=== PATIENT | female | born 1975 | race Caucasian/White ===

== ENCOUNTER → 2016-09-12 | Outpatient (CLI) | payer BC ==
[~2016-09-12] MED LIST: ALPR0.5T PO; ALPR1TAB PO; AMOX-358 PO; CITA20TA12 PO; DOCU-143 PO; HYDR-3062 PO; HYDR-3812 PO; SULF1TAB35 PO; ZOLP10TA PO
--- OUTSIDE RECORDS SUMMARY | 2016-09-12 08:10 | XMS REPORT | Continuity of Care Document ---
Author Author [facility] Organization [facility] Address Unknown Phone Unavailable Care Team Providers Care Diamond Picker Name Role Phone ANNABELLA DALTON MD PCP Insurance Providers Payer Name Policy Number Subscriber Name Relationship [id number] Clarisa Velez 18 Self / Same As Patient Advance Directives Directive Response Recorded Date/Time Advance Directives No 08/02/16 11:39am Health Care Power of Science Liaison No 08/02/16 11:39am Organ Donor Yes 08/02/16 11:39am Resuscitation Status Full Code 08/02/16 11:39am Problems No problem information available. Medications Current Home Medications Medication Dose Units Route Directions Days/Qty Instructions Start Date Sulfamethoxazole/Trimethoprim Unknown Strength 1 Each Oral Daily Docusate Sodium 100 Mg 100 Mg Oral Twice A Day 60 08/02/16 Hydrocodone/Acetaminophen 1 Each 1 Each Oral Q4-6 Hrs as needed for Pain 30 08/02/16 Social History Social History Problem Response Recorded Date/Time Alcohol Use Occasionally Uses 08/02/2016 11:39am Recreational Drug Use No 08/02/2016 11:39am Recent Foreign Travel No 08/02/2016 11:34am Recent Infectious Disease Exposure No 08/02/2016 11:34am Sexually Transmitted Disease No 08/02/2016 11:39am HIV/AIDS No 08/02/2016 11:39am Smoking Status Current Everyday Smoker 08/02/2016 11:39am Type Used Cigarettes 08/02/2016 3:59pm Recent Hopitalizations No 08/02/2016 11:39am Sexually Transmitted Disease No 08/02/2016 11:39am Query Response Start Date Stop Date Smoking Status Current Everyday Smoker Hospital Discharge Instructions Patient Instructions Physician Instructions New, Converted or Re-Newed RX: RX on Chart Plan of Care/Instructions/FU: Change packing with Iodoform daily. Follow up with Dr. Chavez in clinic on friday. Continue with Antibiotics No lifting over 10 lbs Activity as Tolerated: No Other Inst to Patient Follow up Appt: Make appointment for friday Instructions: No lifting greater than 10 pounds. No strenuous activity. May shower in 24 hours, no tub bath or soaking. Use incentive spirometer at home as directed. No Smoking Skin/Wound Care: Change packing every day. Symptoms to Report: Appetite Changes, Extremity Discoloration, Numbness/Tingling, Swelling Increased, Bleeding Excessive, Eyesight Changes, Pain Increased, Urine Color Change, Constipation(Persistent), Fever over 101 degree F, Pain/Pressure in chest, Urinating Difficulty, Cough Up/Vomit Blood, Heart Beat Irreg/Pounding, Pain/Pressure in jaw, Vaginal Bleeding Increase, Cramps in feet or legs, Lightheadedness, Pain/Pressure in shoulder, Diarrhea(Persistent), Memory Changes Suddenly, Questions/Concerns, Weight gain consecutive days, Dizziness/Fainting, Nausea/Vomiting, Shortness of Breath, Weight gain over 2 pounds If questions or concerns contact your physician Or seek help at emergency department. Care Plan Patient Instructions:: Change packing with Iodoform daily.Follow up with Dr. Chavez in clinic on friday. Continue with AntibioticsNo lifting over 10 lbs Plan of Care Discharge Date 08/02/16 2:55pm Instructions/Education Provided ANESTHESIA INSTRUCTIONS POSTOP Wound Incision and Drainage (DC) Prescriptions See Medication Section Functional Status No functional status results. Allergies, Adverse Reactions, Alerts No known allergies. Immunizations No immunization records. Vital Signs Acute Vital Signs Vital Response Date/Time Temperature (Fahrenheit) 97.4 degrees F (97.6 - 99.5) 08/02/2016 2:55pm Temperature (Calculated Celsius) 36.01638 degrees C (36.4 - 37.5) 08/02/2016 2:50pm Temperature Source Temporal 08/02/2016 2:55pm Pulse Rate (adult) 86 bpm (60 - 90) 08/02/2016 2:55pm Respiratory Rate 18 bpm (12 - 24) 08/02/2016 2:55pm O2 Sat by Pulse Oximetry 98 % (88 - 100) 08/02/2016 2:55pm Blood Pressure 118/68 mm Hg 08/02/2016 2:55pm Blood Pressure Mean 87 mm Hg 08/02/2016 11:42am Pain Numeric Pain Scale 0-No Pain 08/02/2016 2:55pm Pain Intensity 0 08/02/2016 2:50pm Height (Feet) 5 feet 08/02/2016 11:38am Height (Inches) 5.00 inches 08/02/2016 11:38am Height (Calculated Centimeters) 165.945601 cm 08/02/2016 11:38am Weight (Pounds) 216 pounds 08/02/2016 11:38am Weight (Ounces) 0.0 oz 08/02/2016 11:38am Weight (Calculated Grams) 30953.95 gm 08/02/2016 11:38am Weight (Calculated Kilograms) 97.323917 kilograms 08/02/2016 11:38am Calculated BMI 35.9 08/02/2016 11:38am Results Microbiology Results Procedure Source Result Collection Date/Time Result Date/Time Surgical Culture Abscess, Breast, Right No growth 08/01/2016 11:20am 2015 10:25am Procedures Procedure Status Date Provider(s) Incision and drainage Completed 08/02/16 SAMANTHA CHAVEZ DO Encounters Encounter Location Arrival/Admit Date Discharge/Depart Date Attending Provider Departed [facility] Day [facility] 08/02/16 9:59am 2:55pm SAMANTHA CHAVEZ DO Registered Clinic [facility] 08/01/16 1:14pm SAMANTHA CHAVEZ DO Registered Clinic [facility] 08/01/16 8:28am SARA FRANKS
--- NOTE | 2016-09-12 20:37 | Diagnostic Imaging Report ---
INDICATION: Right breast abscess. EXAMINATION: Limited ultrasound of the right breast. FINDINGS: The previous right breast ultrasound exam performed on 08/01/16, noted a 4.3 x 2.7 x 3.4 cm hypoechoic mass with internal echoes in the 4 o'clock position of the retroareolar region of the right breast. This area was subsequently aspirated on 08/01/16 and proved to be infected fluid. It is my understanding that the patient then underwent surgical drainage of the infected fluid collection. On this exam, there is still some fluid present in the 4 o'clock position of the retroareolar region of the breast. The fluid collection measures 2.8 x 1.1 x 1.2 cm. Adjacent to this fluid collection, along its lateral aspect, there is a small, 0.8 x 0.8 x 1.0 cm well circumscribed hypoechoic area with internal echoes and through transmission. The ultrasound images do show that this appears to communicate with the fluid collection. I suspect that this is also a small collection of fluid. IMPRESSION: 1. The appearance of the retroareolar region of the left breast has improved since the prior exam as the infected fluid collection, noted previously, has decreased in size. However, there is still some residual fluid present. 2. These results were discussed with Dr. Irving Slaughter. ACR BI-RADS Category 2: Benign findings. Result letter will be mailed to the patient. Note: At least 10% of breast cancer is not imaged by mammography. Dictated by: Dictated on workstation # [id number]
== END ==
LOC: RAD 08:08
PROVIDERS: ATTEND Surgery
DX: N61.1 Abscess of the breast and nipple (principal)

== ENCOUNTER → 2016-09-12 | Outpatient (CLI) | payer BC ==
--- OUTSIDE RECORDS SUMMARY | 2016-09-12 11:32 | XMS REPORT | Continuity of Care Document ---
Author Author [facility] Organization [facility] Address Unknown Phone Unavailable Care Team Providers Care Bale Opener Name Role Phone ANNABELLA DALTON MD PCP Insurance Providers Payer Name Policy Number Subscriber Name Relationship [id number] Clarisa Velez 18 Self / Same As Patient Advance Directives Directive Response Recorded Date/Time Advance Directives No 08/02/16 11:39am Health Care Power of Managing Member No 08/02/16 11:39am Organ Donor Yes 08/02/16 [...] - 99.5) 08/02/2016 2:55pm Temperature (Calculated Celsius) 36.73227 degrees C (36.4 - 37.5) 08/02/2016 2:50pm [...] 5.00 inches 08/02/2016 11:38am Height (Calculated Centimeters) 165.569953 cm 08/02/2016 11:38am Weight (Pounds) 216 pounds 08/02/2016 11:38am Weight (Ounces) 0.0 oz 08/02/2016 11:38am Weight (Calculated Grams) 96074.95 gm 08/02/2016 11:38am Weight (Calculated Kilograms) 97.738547 kilograms 08/02/2016 11:38am Calculated BMI 35.9 08/02/2016 11:38am Results Microbiology Results Procedure Source Result Collection Date/Time Result Date/Time Surgical Culture Abscess, Breast, Right No growth 08/01/2016 11:20am 2015 10:25am Procedures Procedure Status Date Provider(s) Incision and drainage Completed 08/02/16 SAMANTHA CHAVEZ DO Encounters Encounter Location Arrival/Admit Date Discharge/Depart Date Attending Provider Departed Surgical Day Care [facility] 08/02/16 9:59am 2:55pm SAMANTHA CHAVEZ DO Registered Clinic [facility] 08/01/16 1:14pm SAMANTHA CHAVEZ DO Registered Clinic [facility] 08/01/16 8:28am SARA FRANKS
== END ==
LOC: PREOP 11:24
PROVIDERS: ATTEND Surgery
DX: Z01.818 Encounter for other preprocedural examination (principal); N61.1 Abscess of the breast and nipple

== ENCOUNTER 2016-09-13 07:31 | Day surgery (SDC) | payer BC ==
[~2016-09-13] VITALS: Ht 165.1 cm; Wt 99.8 kg
[~2016-09-13 07:31] MED LIST changes: -ALPR0.5T PO; -ALPR1TAB PO; -AMOX-358 PO; -CITA20TA12 PO; -HYDR-3812 PO; -ZOLP10TA PO
--- OUTSIDE RECORDS SUMMARY | 2016-09-13 07:34 | XMS REPORT | Continuity of Care Document ---
Author Author [facility] Organization [facility] Address Unknown Phone Unavailable Care Team Providers Care Field Representative Name Role Phone ANNBAELLA DALTON MD PCP Insurance Providers Payer Name Policy Number Subscriber Name Relationship [id number] Clarisa Velez 18 Self / Same As Patient Advance Directives Directive Response Recorded Date/Time Advance Directives No 08/02/16 11:39am Health Care Power of Asian Studies Professor No 08/02/16 11:39am Organ Donor Yes 08/02/16 [...] - 99.5) 08/02/2016 2:55pm Temperature (Calculated Celsius) 36.89451 degrees C (36.4 - 37.5) 08/02/2016 2:50pm [...] 5.00 inches 08/02/2016 11:38am Height (Calculated Centimeters) 165.447335 cm 08/02/2016 11:38am Weight (Pounds) 216 pounds 08/02/2016 11:38am Weight (Ounces) 0.0 oz 08/02/2016 11:38am Weight (Calculated Grams) 11887.95 gm 08/02/2016 11:38am Weight (Calculated Kilograms) 97.085370 kilograms 08/02/2016 11:38am Calculated BMI 35.9 08/02/2016 11:38am Results Microbiology Results Procedure Source Result Collection Date/Time Result Date/Time Surgical Culture Abscess, Breast, Right No growth 08/01/2016 11:20am 2015 10:25am Procedures Procedure Status Date Provider(s) Incision and drainage Completed 08/02/16 SAMANTHA CHAVEZ DO Encounters Encounter Location Arrival/Admit Date Discharge/Depart Date Attending Provider Departed Surgical Day Care [facility] 08/02/16 9:59am 2:55pm SAMANTHA CHAVEZ DO Registered Clinic [facility] 08/01/16 1:14pm SAMANTHA CHAVEZ DO Registered Clinic [facility] 08/01/16 8:28am SARA FRANKS
--- OUTSIDE RECORDS SUMMARY | 2016-09-13 07:35 | XMS REPORT | Continuity of Care Document ---
Author Author [facility] Organization [facility] Address Unknown Phone Unavailable Care Team Providers Care Publishing Systems Analyst Name Role Phone ANNABELLA DALTON MD PCP Insurance Providers Payer Name Policy Number Subscriber Name Relationship [id number] Clarisa Velez 18 Self / Same As Patient Advance Directives Directive Response Recorded Date/Time Advance Directives No 08/02/16 11:39am Health Care Power of Registered Diet Technician No 08/02/16 11:39am Organ Donor Yes 08/02/16 [...] - 99.5) 08/02/2016 2:55pm Temperature (Calculated Celsius) 36.03987 degrees C (36.4 - 37.5) 08/02/2016 2:50pm [...] 5.00 inches 08/02/2016 11:38am Height (Calculated Centimeters) 165.894691 cm 08/02/2016 11:38am Weight (Pounds) 216 pounds 08/02/2016 11:38am Weight (Ounces) 0.0 oz 08/02/2016 11:38am Weight (Calculated Grams) 46317.95 gm 08/02/2016 11:38am Weight (Calculated Kilograms) 97.687669 kilograms 08/02/2016 11:38am Calculated BMI 35.9 08/02/2016 11:38am Results Microbiology Results Procedure Source Result Collection Date/Time Result Date/Time Surgical Culture Abscess, Breast, Right No growth 08/01/2016 11:20am 2015 10:25am Procedures Procedure Status Date Provider(s) Incision and drainage Completed 08/02/16 SAMANTHA CHAVEZ DO Encounters Encounter Location Arrival/Admit Date Discharge/Depart Date Attending Provider Departed Surgical Day [facility] 08/02/16 9:59am 2:55pm SAMANTHA CHAVEZ DO Registered Clinic [facility] 08/01/16 1:14pm SAMANTHA CHAVEZ DO Registered Clinic [facility] 08/01/16 8:28am SARA FRANKS
[2016-09-13] MEDS: LACTATED RINGERS 1,000 ML IV SCH ×2 (07:45→09:57)
[2016-09-13] MEDS ORDERED: NORMAL SALINE (BAXTER MINI) 100 ML IV ONE (07:46)
[2016-09-13] MEDS ORDERED: ceFAZolin 1,000 MG (ANCEF) VIAL ONE (07:46)
[2016-09-13] MEDS ORDERED: LIDOCAINE 1% INJ 20 ML (XYLOCAINE) VIAL ONE (07:55)
[2016-09-13] MEDS ORDERED: BUPIVACAINE 0.5% 30 ML (SENSORCAINE) VIAL ONE (07:55)
[2016-09-13] MEDS ORDERED: MIDAZOLAM 2 MG/2 ML (VERSED) VIAL ONE (07:57)
[2016-09-13] MEDS ORDERED: fentaNYL INJECTION 100 MCG/2 ML AMP ONE (07:57)
[2016-09-13] MEDS ORDERED: LACTATED RINGERS 1,000 ML IV ONE ×2 (07:57→09:49)
[2016-09-13] MEDS ORDERED: ONDANSETRON 4 MG/2 ML (SDV) Z0FRAN ONE (07:57)
[2016-09-13] MEDS ORDERED: LIDOCAINE PF 2% 10 ML (XYLOCAINE) AMP ONE (07:57)
[2016-09-13] MEDS ORDERED: proPOfol 200 MG/20 ML (DIPRIVAN) VIAL IV ONE (07:57)
[2016-09-13] MEDS ORDERED: CITA20TA12 PO (08:04)
[2016-09-13] MEDS ORDERED: ZOLP10TA PO (08:04)
[2016-09-13] MEDS ORDERED: ALPR0.5T PO (08:04)
[2016-09-13 08:11] VITALS: BP 124/86
[2016-09-13] MEDS ORDERED: ceFAZolin 1 GM/NS 50 ML IVPB IV ONE ×4 (08:15)
[2016-09-13] MEDS ORDERED: morphine INJ 10 MG/ML 1ML (SYR OR VIAL) IVP PRN (08:30)
[2016-09-13] MEDS ORDERED: MEPERIDINE (DEMEROL) INJ 50 MG/ML IVP PRN ×2 (08:30→09:30)
[2016-09-13] MEDS ORDERED: ONDANSETRON 4 MG/2 ML (SDV) Z0FRAN IVP PRN ×2 (08:30→09:30)
--- NOTE | 2016-09-13 08:40 | Progress Note-Pre Operative ---
Pre-Operative Progress Note H&P Reviewed The H&P was reviewed, patient examined and no changes noted. Date H&P Reviewed: Sep 13, 2016 Time H&P Reviewed: 08:40 Pre-Operative Diagnosis: right breast abscess SAMANTHA CHAVEZ DO Sep 13, 2016 8:40 am
[2016-09-13] MEDS ORDERED: SEVOFLURANE (ULTANE) 15 ML INHAL SOLN ONE ×2 (08:42→09:06)
[2016-09-13] MEDS ORDERED: HYDROmorphone (DILAUDID) 2 MG/ML VIAL IVP PRN (09:30)
[2016-09-13] MEDS ORDERED: morphine INJ 10 MG/ML 1ML (SYR OR VIAL) ONE (09:39)
[2016-09-13] MEDS: morphine INJ 10 MG/ML 1ML (SYR OR VIAL) IVP PRN ×2 (09:48→09:53)
[2016-09-13] MEDS ORDERED: HYDR-3062 PO (09:48)
--- NOTE | 2016-09-13 09:50 | Discharge Inst-Simple/Standard ---
Discharge Inst-Standard Discharge Medications New, Converted or Re-Newed RX: RX on Chart Patient Instructions/Follow Up Plan of Care/Instructions/FU: Follow up with Dr. Slaughter on Friday. Irrigate wound and pack daily. Take medications as prescribed. Activity as Tolerated: No Discharge Diet: No Restrictions Other Inst to Patient Follow up Appt: Make appointment for friday. Instructions: No lifting greater than 10 pounds. No strenuous activity. May shower in 24 hours, no tub bath or soaking. Use incentive spirometer at home as directed. No Smoking Skin/Wound Care: Irrigate wound and pack daily Symptoms to Report: Appetite Changes, Extremity Discoloration, Numbness/Tingling, Swelling Increased , Bleeding Excessive, Eyesight Changes, Pain Increased, Urine Color Change, Constipation(Persistent), Fever over 101 degree F, Pain/Pressure in chest, Urinating Difficulty, Cough Up/Vomit Blood, Heart Beat Irreg/Pounding, Pain/ Pressure in jaw, Vaginal Bleeding Increase, Cramps in feet or legs, Lightheadedness, Pain/Pressure in shoulder, Diarrhea(Persistent), Memory Changes Suddenly, Questions/Concerns, Weight gain consecutive days, Dizziness/ Fainting, Nausea/Vomiting, Shortness of Breath, Weight gain over 2 pounds If questions or concerns contact your physician Or seek help at emergency department. JOSE ASCENCIO APRN Sep 13, 2016 09:50
[2016-09-13] MEDS ORDERED: AMOX-358 PO (09:54)
[2016-09-13 10:20] VITALS: BP 109/80
--- NOTE | 2016-09-13 10:24 | Progress Note-Post Operative ---
Post-Operative Progess Note Pre-Operative Diagnosis right breast abscess Post-Operative Diagnosis same Post-Op Procedure Note Date of Procedure: Sep 13, 2016 Name of Procedure: i and d and debridement of right breast [id number] Procedure Note/Findings see note Anesthesia Type general Estimated blood loss (mL): minimal Specimen(s) collected breast tissue right SAMANTHA CHAVEZ DO Sep 13, 2016 10:24 am
[2016-09-13 10:50] VITALS: BP 118/70
[2016-09-13 11:20] VITALS: BP 109/80
--- NOTE | 2016-09-15 12:11 | OPERATIVE REPORT ---
PROCEDURE PHYSICIAN: SAMANTHA CHAVEZ DATE OF PROCEDURE: 09/13/2016 PREOPERATIVE DIAGNOSIS: Right breast abscess. POSTOPERATIVE DIAGNOSIS: Right breast abscess. PROCEDURE: Incision and drainage and debridement of right breast 7 x 4 x 4 cm. ANESTHESIA: General. ESTIMATED BLOOD LOSS: Minimal. COMPLICATIONS: None. INDICATIONS: The patient is a 41-year-old female who had previous had incision and drainage of right breast. The wound healed but she had reaccumulation of fluid demonstrated by ultrasound. The patient is still has significant induration on exam here. The patient understands the risks and benefits of procedure and wished to proceed with procedure. Consent was signed on chart. PROCEDURE: The patient was taken to the operative suite. She was prepped in sterile fashion. A surgical pause was performed. Using the previous incision a cautery cut was used to open the existing incision. This was opened up more laterally as well. Purulent material erupted, culture was obtained. The area was then continued to be opened up further. Large pocket still present with significant inflamed hard tissue present. Cautery was used to dissect around the hard firm tissue to soft healthy feeling and appearing tissue. The total size was 7 x 4 x 4 cm of the pocket of the breast. Copious amounts of irrigation were used to irrigate the breast. Hemostasis had been achieved. The wound was then packed with one-inch iodoform. The breast was then washed and dried. Sterile bandage was applied. The patient tolerated the procedure well without complication. She was taken to recovery room in stable condition. The patient is to continue daily irrigation and packing changes. The patient will follow-up in my office on Friday. If she has any problems prior to that, she should be reevaluated at that time. Job ID: [id number] Dictated Date: 09/13/2016 10:27:53 Produce Assistant Date: 09/15/2016 12:03:33 / huber
== END 2016-09-13 11:20 | disposition home or self-care (01) ==
LOC: SDC 07:31
PROVIDERS: ATTEND Surgery
DX: N61.1 Abscess of the breast and nipple (principal)
CPT/HCPCS: 84703; 87070; 87075; 87081; 87205; 88305; 94664

== ENCOUNTER 2016-09-14 09:18 | Outpatient (RCR) | payer BC ==
[~2016-09-14] VITALS: Ht 165.1 cm; Wt 99.8 kg
[~2016-09-14 09:18] MED LIST changes: +ALPR0.5T PO; +AMOX-358 PO; +CITA20TA12 PO; +ZOLP10TA PO
--- OUTSIDE RECORDS SUMMARY | 2016-09-14 09:22 | XMS REPORT | Continuity of Care Document ---
Author Author [facility] Organization [facility] Address Unknown Phone Unavailable Care Team Providers Care Secretary Receptionist Name Role Phone ANNABELLA DALTON MD PCP Insurance Providers Payer Name Policy Number Subscriber Name Relationship [id number] Clarisa Velez 18 Self / Same As Patient Advance Directives Directive Response Recorded Date/Time Advance Directives No 08/02/16 11:39am Health Care Power of Branch Customer Service Representative No 08/02/16 11:39am Organ Donor Yes 08/02/16 [...] - 99.5) 08/02/2016 2:55pm Temperature (Calculated Celsius) 36.82179 degrees C (36.4 - 37.5) 08/02/2016 2:50pm [...] 5.00 inches 08/02/2016 11:38am Height (Calculated Centimeters) 165.367671 cm 08/02/2016 11:38am Weight (Pounds) 216 pounds 08/02/2016 11:38am Weight (Ounces) 0.0 oz 08/02/2016 11:38am Weight (Calculated Grams) 80091.95 gm 08/02/2016 11:38am Weight (Calculated Kilograms) 97.275634 kilograms 08/02/2016 11:38am Calculated BMI 35.9 08/02/2016 11:38am Results Microbiology Results Procedure Source Result Collection Date/Time Result Date/Time Surgical Culture Abscess, Breast, Right No growth 08/01/2016 11:20am 2015 10:25am Procedures Procedure Status Date Provider(s) Incision and drainage Completed 08/02/16 SAMANTHA CHAVEZ DO Encounters Encounter Location Arrival/Admit Date Discharge/Depart Date Attending Provider Departed Surgical Day Care [facility] 08/02/16 9:59am 2:55pm SAMANTHA CHAVEZ DO Registered Clinic [facility] 08/01/16 1:14pm SAMANTHA CHAVEZ DO Registered Clinic [facility] 08/01/16 8:28am SARA FRANKS
[2016-09-14 09:47] VITALS: BP 124/79
== END 2016-12-13 | disposition home or self-care (01) ==
LOC: SDC 09:18
PROVIDERS: ATTEND Surgery
DX: Z48.01 Encounter for change or removal of surgical wound dressing (principal)

== ENCOUNTER 2016-12-18 13:53 | Outpatient (CLI) | payer BC ==
[~2016-12-18] VITALS: Ht 166.4 cm; Wt 101.2 kg
[2016-12-18] MEDS ORDERED: ALPR1TAB PO (14:04)
[2016-12-18 14:12] VITALS: BP 135/87
[2016-12-19] MEDS ORDERED: DOCU-143 PO (13:28)
[2016-12-19] MEDS ORDERED: HYDR-3812 PO (13:28)
== END 2016-12-18 14:10 | disposition home or self-care (01) ==
LOC: PREOP 13:53
PROVIDERS: ATTEND Surgery
DX: Z01.812 Encounter for preprocedural laboratory examination (principal); Z11.2 Encounter for screening for other bacterial diseases; N61.1 Abscess of the breast and nipple
CPT/HCPCS: 84703; 87081

== ENCOUNTER 2016-12-19 10:50 | Day surgery (SDC) | payer BC ==
[~2016-12-19] VITALS: Ht 166.4 cm; Wt 101.2 kg
[~2016-12-19 10:50] MED LIST changes: +ALPR1TAB PO
[2016-12-19] MEDS ORDERED: ceFAZolin 2 GM/NS 50 ML IV ONE (11:15)
[2016-12-19] MEDS ORDERED: MIDAZOLAM 2 MG/2 ML (VERSED) VIAL IV ONE (11:45)
[2016-12-19] MEDS: LACTATED RINGERS 1,000 ML IV PRN ×2 (11:56→14:21)
[2016-12-19 12:05] VITALS: BP 121/76
[2016-12-19] MEDS ORDERED: proPOfol 200 MG/20 ML (DIPRIVAN) VIAL IV ONE (12:28)
[2016-12-19] MEDS ORDERED: LIDOCAINE PF 2% 10 ML (XYLOCAINE) AMP ONE (12:28)
[2016-12-19] MEDS ORDERED: SEVOFLURANE (ULTANE) 15 ML INHAL SOLN ONE ×2 (12:28→13:41)
[2016-12-19] MEDS ORDERED: LACTATED RINGERS 1,000 ML IV ONE ×2 (12:28→14:21)
[2016-12-19] MEDS ORDERED: MIDAZOLAM 2 MG/2 ML (VERSED) VIAL ONE (12:29)
[2016-12-19] MEDS ORDERED: fentaNYL INJECTION 100 MCG/2 ML AMP ONE ×2 (12:29→14:06)
--- NOTE | 2016-12-19 12:31 | Progress Note-Pre Operative ---
Pre-Operative Progress Note H&P Reviewed The H&P was reviewed, patient examined and no changes noted. Date H&P Reviewed: December 19, 2016 Time H&P Reviewed: 12:31 Pre-Operative Diagnosis: chronic right breast abscess SAMANTHA CHAVEZ DO December 19, 2016 12:31 pm
[2016-12-19] MEDS ORDERED: LIDOCAINE 1% INJ 20 ML (XYLOCAINE) VIAL ONE (12:32)
[2016-12-19] MEDS ORDERED: BUPIVACAINE 0.5% 30 ML (SENSORCAINE) VIAL ONE (12:32)
--- NOTE | 2016-12-19 13:27 | Discharge Inst-Simple/Standard ---
Discharge Inst-Standard Patient Instructions/Follow Up Plan of Care/Instructions/FU: Follow in clinic in 2 weeks Take medication as directed. Activity as Tolerated: No Discharge Diet: No Restrictions Other Inst to Patient Follow up Appt: Make appointment for 2 weeks. Instructions: No lifting greater than 10 pounds. No strenuous activity. May shower in 24 hours, no tub bath or soaking. Use incentive spirometer at home as directed. No Smoking Skin/Wound Care: Glue over incision. Leave glue alone as it will fall off. Symptoms to Report: Appetite Changes, Extremity Discoloration, Numbness/Tingling, Swelling Increased , Bleeding Excessive, Eyesight Changes, Pain Increased, Urine Color Change, Constipation(Persistent), Fever over 101 degree F, Pain/Pressure in chest, Urinating Difficulty, Cough Up/Vomit Blood, Heart Beat Irreg/Pounding, Pain/ Pressure in jaw, Vaginal Bleeding Increase, Cramps in feet or legs, Lightheadedness, Pain/Pressure in shoulder, Diarrhea(Persistent), Memory Changes Suddenly, Questions/Concerns, Weight gain consecutive days, Dizziness/ Fainting, Nausea/Vomiting, Shortness of Breath, Weight gain over 2 pounds If questions or concerns contact your physician Or seek help at emergency department. JOSE ASCENCIO APRN December 19, 2016 13:27
[2016-12-19] MEDS ORDERED: HYDR-3812 PO (13:28)
[2016-12-19] MEDS ORDERED: DOCU-143 PO (13:28)
[2016-12-19] MEDS ORDERED: fentaNYL INJECTION 100 MCG/2 ML AMP IVP PRN (14:00)
[2016-12-19] MEDS ORDERED: ONDANSETRON 4 MG/2 ML (SDV) Z0FRAN IVP PRN (14:00)
[2016-12-19] MEDS ORDERED: morphine INJ 10 MG/ML 1ML (SYR OR VIAL) ONE (14:06)
[2016-12-19] MEDS ORDERED: ONDANSETRON 4 MG/2 ML (SDV) Z0FRAN ONE (14:07)
[2016-12-19] MEDS: morphine INJ 10 MG/ML 1ML (SYR OR VIAL) IVP PRN ×3 (14:11→14:27)
[2016-12-19 14:55] VITALS: BP 126/90
--- NOTE | 2016-12-19 15:01 | Progress Note-Post Operative ---
Post-Operative Progess Note Surgeon (s)/Computational Chemist (s) Surgeon SAMANTHA CHAVEZ DO Computational Chemist: Dr. Banda Pre-Operative Diagnosis chronic right breast abscess Post-Operative Diagnosis right breast cyst with fistual to nipple Post-Op Procedure Note Date of Procedure: December 19, 2016 Name of Procedure Performed: right breast simple partial mastectomy 8x 3x2.5 cm Description of the Procedure: as above Findings of the Procedure fistula from nipple to cyst Anesthesia Type gen Estimated blood loss (mL): minimal Specimen(s) collected/removed right breast mass SAMANTHA CHAVEZ DO December 19, 2016 3:01 pm
[2016-12-19 15:25] VITALS: BP 114/84
[2016-12-19 15:55] VITALS: BP 121/81
[2016-12-19 16:05] VITALS: BP 121/81
--- NOTE | 2016-12-20 09:19 | OPERATIVE REPORT ---
DATE OF SERVICE: 12/19/2016 PREOPERATIVE DIAGNOSIS: Chronic right breast abscess. POSTOPERATIVE DIAGNOSIS: Chronic right breast abscess. PROCEDURE: Right breast simple partial mastectomy 8 x 3 x 2.5 cm. SURGEON: Samantha Slaughter DO. PATTERN GRADER CUTTER: Dr. Banda, assisted in retraction, dissection and closure. ANESTHESIA: General. ESTIMATED BLOOD LOSS: Minimal. COMPLICATIONS: None. INDICATIONS: The patient is a 41-year-old female who has had previous incision and drainage and debridement of the right breast. She has continued to have recurrent issues with the right breast. She has had previous piercings and there was communication to the infected area. The patient was given risks and benefits of procedure and given alternatives and she wished to proceed with procedure. Consent was signed on chart. DESCRIPTION OF PROCEDURE: The patient was taken to the operating suite, she was prepped and draped in sterile fashion. Surgical pause was performed. An incision was made inferior to the breast area of concern and just inferior to the nipple in a linear fashion. Dissection was taken down removing the breast tissue. Just below the nipple, a cystic area was encountered which was then completely removed. This went all the way up to the nipple. At this time, using the Angiocath needle and syringe, peroxide was placed through the previous piercing which demonstrated a fistula down to the area of the cystic/abscess area. At this time, after previous discussion with the patient it was felt that the nipple should be removed due to this fistula tract with recurrent issues. So using a 15 blade scalpel, the elliptical incision was completed incorporating the nipple within the incision. Cautery was used to dissect the subcutaneous tissues, removing skin, subcutaneous tissues with total dissection measuring approximately 8 x 3 x 2.5 cm. All the tissue was viable with no signs of infection. There was a small cystic appearing mass approximately 0.5 cm in diameter which was visualized within the incision. Therefore, that was dissected around and removed using cautery. Hemostasis had been achieved. The wound was then irrigated. The subcutaneous tissues were then reapproximated using 3-0 Vicryl. Skin was then closed using 4-0 Monocryl in a running subcuticular fashion. The area was washed and dried. Mastisol and Steri-Strips were applied. Sterile bandage was applied. Total of 20 mL of 0.5% Marcaine and 1% lidocaine 50:50 ratio was used to anesthetize the area. Job ID: [id number] DocumentID: [id number] Dictated Date: 12/20/2016 07:47:58 Silk Screen Painter Date: 12/20/2016 09:18:32 Dictated By: SAMANTHA SLAUGHTER DO
== END 2016-12-19 16:05 | disposition home or self-care (01) ==
LOC: SDC 10:50
PROVIDERS: ATTEND Surgery
DX: N61.1 Abscess of the breast and nipple (principal); F17.210 Nicotine dependence, cigarettes, uncomplicated; F41.9 Anxiety disorder, unspecified; Z79.899 Other long term (current) drug therapy
CPT/HCPCS: 87070; 87075; 87205; 88305; 94664